=== PATIENT | male | born 1980 | race Caucasian/White ===

== ENCOUNTER 2016-05-25 21:21 | Inpatient (IN) | payer OTHER ==
--- NOTE | 2016-05-25 21:35 | HP ---
COWS - Scale Resting Pulse: 0= MA 80 or Below Sweatin=Flushed/Facial Moisture Restless Observation: 3= Extraneous Movement Pupil Size: 1= Pupils >than Normal Bone or Joint Aches: 0= None Runny Nose/ Eye Tearin= Runny Nose/Eyes GI Upset > 30mins: 2= Nausea/Diarrhea Tremor Observation: 1= Tremor Morton, Not Seen Yawning Observation: 1= 1-2x During Session Anxiety or Irritability: 1=Feels Anxious/Irritable Goose Flesh Skin: 3=Piloerection COWS Score: 16 Admission ROS BHS - HPI Chief Complaint: WITHDRAWAL SYMPTOMS Allergies/Adverse Reactions: Allergies Allergy/AdvReac Type Severity Reaction Status Date / Time fish derived Allergy Intermediate Verified 11/27/15 08:14 shellfish derived Allergy Intermediate Verified 11/27/15 08:14 No Known Drug Allergies Allergy Verified 11/27/15 08:14 seafood Allergy Intermediate Uncoded 11/27/15 08:14 History of Present Illness: 36 Y.O. MAN WITH A 19 YEAR HISTORY OF OPIATE DEPENDENCY IS SEEKING DETOX. HE REPORTS HAVING A 2 YEAR PERIOD OF SOBRIETY. HE DID NOT COMPLETE TREATMENT DURING HIS LAS TWO ADMISSIONS HERE. HE WAS INCARCERATED THE LAST 5 DAYS AT [facility] AND REPORTS HE WAS BEING DETOXED METH[facility]ONE WITH [facility] BUT HE WAS RELEASED BEFORE HE COULD COMPLETE TX. HE DENIES BEING IN A MMTP. Exam Limitations: No Limitations - Ebola screening Have you traveled outside of the country in the last 21 days: No (N) Have you had contact with anyone from an Ebola affected area: No Do you have a fever: No - Review of Systems Constitutional: Loss of Appetite, Unintentional Wgt. Loss EENT: reports: No Symptoms Reported Respiratory: reports: No Symptoms reported Cardiac: reports: No Symptoms Reported GI: reports: No Symptoms Reported : reports: No Symptoms Reported Musculoskeletal: reports: No Symptoms Reported Integumentary: reports: No Symptoms Reported Neuro: reports: No Symptoms reported Endocrine: reports: No Symptoms Reported Hematology: reports: No Symptoms Reported Psychiatric: reports: Mood/Affect Appropiate, Anxious Other Systems: Reviewed and Negative Patient History - Patient Medical History Hx Anemia: No Hx Asthma: Yes (CHILDHOOD ASTHMA ) Hx Chronic Obstructive Pulmonary Disease (COPD): No Hx Cancer: No Hx Cardiac Disorders: No Hx Congestive Heart Failure: No Hx Hypertension: No Hx Hypercholesterolemia: No Hx Pacemaker: No HX Cerebrovascular Accident: No Hx Seizures: No Hx Dementia: No Hx Diabetes: No Hx Gastrointestinal Disorders: No Hx Liver Disease: No Hx Genitourinary Disorders: No Hx Sexually Transmitted Disorders: No Hx Renal Disease (ESRD): No Hx Thyroid Disease: No Hx Human Immunodeficiency Virus (HIV): No Hx Hepatitis C: No Hx Depression: No Hx Suicide Attempt: No Hx Bipolar Disorder: No Hx Schizophrenia: No - Patient Surgical History Past Surgical History: No Hx Neurologic Surgery: No Hx Cataract Extraction: No Hx Cardiac Surgery: No Hx Lung Surgery: No Hx Breast Surgery: No Hx Breast Biopsy: No Hx Abdominal Surgery: No Hx Appendectomy: No Hx Cholecystectomy: No Hx Genitourinary Surgery: No Hx Section: No Hx Orthopedic Surgery: No - PPD History Previous Implant?: Yes Documented Results: Negative w/proof Implanted On Prior R Admission?: Yes Date: 08/27/15 Results: Negative PPD to be Administered?: No - Reproductive History Patient is a Female of Child Bearing Age (11 -55 yrs old): No - Smoking Cessation Smoking history: Current every day smoker Have you smoked in the past 12 months: Yes Aproximately how many cigarettes per day: 20 Hx Chewing Tobacco Use: No Initiated information on smoking cessation: Yes 'Breaking Loose' booklet given: 05/25/16 - Substance & Tx. History Hx Alcohol Use: No Hx Substance Use: Yes Substance Use Type: Heroin Hx Substance Use Treatment: Yes - Substances Abused Heroin Route: Injection Frequency: Daily Amount used: 8-10 BAGS Age of first use: 17 Date of Last Use: 05/25/16 Family Disease History - Family Disease History Family Disease History: Other: Father (DEPENDENT ON ETOH AND DRUGS AND ) Admission Physical Exam BHS - Vital Signs Vital Signs: Last Vital Signs Temp Pulse Resp BP Pulse Ox 97.3 F L 76 20 119/75 05/25/16 21:30 05/25/16 21:30 05/25/16 21:30 05/25/16 21:30 - Physical General Appearance: Yes: Disheveled, Anxious HEENTM: Yes: Hearing grossly Normal, Normal ENT Inspection, Normocephalic, Normal Voice Respiratory: Yes: Chest Non-Tender, Lungs Clear, Normal Breath Sounds, No Respiratory Distress, No Accessory Muscle Use Neck: Yes: No masses,lesions,Nodules, Trachea in good position Breast: Yes: Breast Exam Deferred Cardiology: Yes: Regular Rhythm, Regular Rate Abdominal: Yes: Normal Bowel Sounds, Non Tender Genitourinary: Yes: Other (NO COMPLAINTS REPORTED) Back: Yes: Normal Inspection Musculoskeletal: Yes: full range of Motion, Gait Steady, Pelvis Stable Extremities: Yes: Normal Inspection, Normal Range of Motion, Non-Tender Neurological: Yes: Alert, Motor Strength 5/5, Normal Mood/Affect, Normal Response Integumentary: Yes: Normal Color, Dry, Warm, Track Jara Lymphatic: Yes: Within Normal Limits - Diagnostic (1) Opioid dependence with withdrawal Current Visit: Yes Status: Chronic (2) Nicotine dependence Current Visit: Yes Status: Chronic Cleared for Admission [facility] - Detox or Rehab [facility] Level of Care: Medically Managed Detox Regimen/Protocol: Methadone [facility] Breath Alcohol Content Breath Alcohol Content: 0
[2016-05-25] MEDS ORDERED: MENTHOL/PHENOL 1 EACH UD MM PRN (21:48)
[2016-05-25] MEDS ORDERED: hydrOXYzine PAMOATE 50 MG CAPSULE (FP) PO PRN (21:48)
[2016-05-25] MEDS ORDERED: LOPERAMIDE HCL 2 MG CAPSULE PO PRN (21:48)
[2016-05-25] MEDS ORDERED: guaiFENesin/D-METHORPHAN HB 10 ML UNIT-DOSE CUPS PO PRN (21:48)
[2016-05-25] MEDS ORDERED: NICOTINE POLACRILEX 2 MG GUM BUC PRN (21:48)
[2016-05-25] MEDS ORDERED: MAGNESIUM HYDROX 2400MG/30ML ORAL SUSPENSION 30 ML CUP PO PRN (21:48)
[2016-05-25] MEDS ORDERED: IBUPROFEN 400 MG TABLET (FP) PO PRN (21:48)
[2016-05-25] MEDS ORDERED: P-EPHED 60MG/TRIPROLIDI 2.5MG TABLET PO PRN (21:48)
[2016-05-25] MEDS ORDERED: ACETAMINOPHEN 325 MG TABLET (FP) PO PRN (21:48)
[2016-05-25] MEDS ORDERED: MAGNESIUM CITRATE 300 ML BOTTLE PO PRN (21:48)
[2016-05-25] MEDS ORDERED: METHADONE HCL 10 MG TABLET (FOR DETOX USE ONLY) PO ONE ×2 (21:48→23:00)
[2016-05-25] MEDS ORDERED: MAG HYDROX/AL HYDROX/SIMETH 30 ML UNIT-DOSE CUP PO PRN (21:48)
[2016-05-25 21:52] VITALS: BMI 22.5
[2016-05-25] MEDS: THIAMINE HCL 100 MG TABLET (FP) PO SCH (23:49)
[2016-05-25] MEDS: diphenhydrAMINE HCL 50 MG CAPSULE PO PRN (23:50)
[2016-05-25] MEDS: diazePAM 5 MG TABLET PO PRN (23:50)
[2016-05-26] MEDS ORDERED: METHADONE HCL 10 MG TABLET (FOR DETOX USE ONLY) PO ONE (10:00)
[2016-05-26 10:30] LABS: MCH 29.3 pg (25.7-33.7); MCHC 33.1 g/dl (32.0-35.9); MEAN CELL VOLUME 88.5 fl (80-96); MEAN PLT VOLUME 8.9 fl (7.5-11.1); PLATELET COUNT 196 K/MM3 (134-434); RDW 13.8 % (11.9-15.9); WHITE BLOOD COUNT 7.2 K/mm3 (4.0-10.0)
[2016-05-26] MEDS: PRENATAL VITAMINS W/ FOLIC ACID TABLET (FP) PO SCH (10:41)
[2016-05-26] MEDS: NICOTINE 21 MG/24 HOURS TOPICAL PATCH TD SCH (10:41)
[2016-05-26] MEDS: diazePAM 5 MG TABLET PO PRN ×3 (10:42→22:39)
[2016-05-26 10:56] LABS: ALBUMIN 3.4 g/dl (3.4-5.0); ALK PHOS 52 U/L (45-117); ANION GAP 9 (8-16); BILIRUBIN,TOTAL 0.3 mg/dL (0.2-1.0); CALCIUM 8.8 mg/dL (8.5-10.1); CO2 31 mmol/L (21-32); COCKROFT - GAULT 104.82; CREATININE 0.9 mg/dL (0.7-1.3); GLUCOSE,RANDOM 95 mg/dL (74-106); SGOT/AST 10 U/L (15-37); SGPT/ALT 21 U/L (12-78); TOT PROT 6.4 g/dl (6.4-8.2)
[2016-05-26 12:48] LABS: HIV 1 & 2 AB NEGATIVE; HIV 1 AGp24 NEGATIVE
[2016-05-26 13:54] LABS: URINE APPEARANCE CLEAR; URINE BILIRUBIN NEGATIVE (NEGATIVE); URINE BLOOD NEGATIVE (NEGATIVE); URINE COLOR LTYELLOW; URINE GLUCOSE (UA) NEGATIVE (NEGATIVE); URINE KETONE NEGATIVE (NEGATIVE); URINE LEUK ESTERASE NEGATIVE (NEGATIVE); URINE NITRITE NEGATIVE (NEGATIVE); URINE PROTEIN NEGATIVE (NEGATIVE); URINE UROBILINOGEN NEGATIVE E.U./dl (0.2-1.0)
[2016-05-26] MEDS: TOLNAFTATE 1% CREAM 15 GM TUBE TP SCH ×2 (14:37→22:36)
--- NOTE | 2016-05-26 16:20 | PN ---
BHS COWS - Scale Resting Pulse: 1= NC 81-100 Sweatin=Flushed/Facial Moisture Restless Observation: 1= Difficult to Sit Still Pupil Size: 0= Normal to Room Light Bone or Joint Aches: 2= Severe Diffuse Aches Runny Nose/ Eye Tearin= Nasal Congestion GI Upset > 30mins: 2= Nausea/Diarrhea Tremor Observation of Outstretched Hands: 2= Slight Tremor Visible Yawning Observation: 1= 1-2x During Session Anxiety or Irritability: 2=Irritable/Anxious Goose Flesh Skin: 0=Smooth Skin COWS Score: 14 BHS Progress Note (SOAP) Subjective: Nausea, Interrupted Sleep, Body Aches, Sweating. Objective: PT. A & O X 3, OBSERVED AMBULATING ON UNIT. 05/26/16 16:18 Vital Signs Temperature 96.4 F L 05/26/16 13:43 Pulse Rate 81 05/26/16 13:43 Respiratory Rate 18 05/26/16 13:43 Blood Pressure 104/59 05/26/16 13:43 O2 Sat by Pulse Oximetry (%) Laboratory Last Values WBC 7.2 K/mm3 (4.0-10.0) 05/26/16 08:00 RBC 4.46 M/mm3 (4.00-5.60) 05/26/16 08:00 Hgb 13.1 GM/dL (11.7-16.9) 05/26/16 08:00 Hct 39.5 % (35.4-49) 05/26/16 08:00 MCV 88.5 fl (80-96) 05/26/16 08:00 MCHC 33.1 g/dl (32.0-35.9) 05/26/16 08:00 RDW 13.8 % (11.9-15.9) D 05/26/16 08:00 Plt Count 196 K/MM3 (134-434) 05/26/16 08:00 MPV 8.9 fl (7.5-11.1) 05/26/16 08:00 Sodium 146 mmol/L (136-145) H 05/26/16 08:00 Potassium 4.1 mmol/L (3.5-5.1) 05/26/16 08:00 Chloride 106 mmol/L (98-107) 05/26/16 08:00 Carbon Dioxide 31 mmol/L (21-32) 05/26/16 08:00 Anion Gap 9 (8-16) 05/26/16 08:00 BUN 20 mg/dL (7-18) H D 05/26/16 08:00 Creatinine 0.9 mg/dL (0.7-1.3) 05/26/16 08:00 Creat Clearance w eGFR > 60 (>60) 05/26/16 08:00 Random Glucose 95 mg/dL (74-106) 05/26/16 08:00 Calcium 8.8 mg/dL (8.5-10.1) 05/26/16 08:00 Total Bilirubin 0.3 mg/dL (0.2-1.0) 05/26/16 08:00 AST 10 U/L (15-37) L D 05/26/16 08:00 ALT 21 U/L (12-78) 05/26/16 08:00 Alkaline Phosphatase 52 U/L (45-117) D 05/26/16 08:00 Total Protein 6.4 g/dl (6.4-8.2) 05/26/16 08:00 Albumin 3.4 g/dl (3.4-5.0) 05/26/16 08:00 Urine Color Ltyellow 05/26/16 08:59 Urine Appearance Clear 05/26/16 08:59 Urine pH 6.0 (5.0-8.0) 05/26/16 08:59 Ur Specific [place] 1.025 (1.001-1.035) 05/26/16 08:59 Urine Protein Negative (NEGATIVE) 05/26/16 08:59 Urine Glucose (UA) Negative (NEGATIVE) 05/26/16 08:59 Urine Ketones Negative (NEGATIVE) 05/26/16 08:59 Urine Blood Negative (NEGATIVE) 05/26/16 08:59 Urine Nitrite Negative (NEGATIVE) 05/26/16 08:59 Urine Bilirubin Negative (NEGATIVE) 05/26/16 08:59 Urine Urobilinogen Negative E.U./dl (0.2-1.0) 05/26/16 08:59 Ur Leukocyte Esterase Negative (NEGATIVE) 05/26/16 08:59 RPR Titer Nonreactive (NONREACTIVE) 05/26/16 08:00 HIV 1&2 Antibody Screen Negative 05/26/16 08:00 HIV P24 Antigen Negative 05/26/16 08:00 LABS NOTED. Assessment: 05/26/16 16:19 WITHDRAWAL SYMPTOMS. Plan: CONTINUE DETOX. ADVISED PATIENT TO FOLLOW-UP WITH CONTROL PANEL TESTER / REHAB MEDICAL PROVIDER AFTER DISCHARGE FROM DETOX FOR GENERAL MEDICAL ASSESSMENT AND FOR ABNORMAL ADMISSION LAB VALUES.
[2016-05-26] MEDS: THIAMINE HCL 100 MG TABLET (FP) PO SCH (22:36)
[2016-05-26] MEDS: diphenhydrAMINE HCL 50 MG CAPSULE PO PRN (22:36)
[2016-05-27] MEDS: diazePAM 5 MG TABLET PO PRN ×3 (03:52→19:41)
[2016-05-27] MEDS: TOLNAFTATE 1% CREAM 15 GM TUBE TP SCH ×2 (10:37→22:56)
[2016-05-27] MEDS: PRENATAL VITAMINS W/ FOLIC ACID TABLET (FP) PO SCH (10:37)
[2016-05-27] MEDS: NICOTINE 21 MG/24 HOURS TOPICAL PATCH TD SCH (10:37)
--- NOTE | 2016-05-27 11:39 | PN ---
S COWS - Scale Resting Pulse: 1= MS 81-100 Sweatin= Chills/Flushing Restless Observation: 1= Difficult to Sit Still Pupil Size: 1= Pupils >than Normal Bone or Joint Aches: 1= Mild Discomfort Runny Nose/ Eye Tearin= Nasal Congestion GI Upset > 30mins: 2= Nausea/Diarrhea Tremor Observation of Outstretched Hands: 2= Slight Tremor Visible Yawning Observation: 1= 1-2x During Session Anxiety or Irritability: 2=Irritable/Anxious Goose Flesh Skin: 3=Piloerection COWS Score: 16 S Progress Note (SOAP) Subjective: nausea, sweats, interrupted sleep, anxiety, tremors Objective: 05/27/16 11:38 Vital Signs - 24 hr 05/26/16 05/26/16 05/26/16 13:43 18:06 21:42 Temperature 96.4 F L 96.3 F L 97.2 F L Pulse Rate 81 64 71 Respiratory 18 18 18 Rate Blood Pressure 104/59 96/46 105/59 05/27/16 05/27/16 05/27/16 00:30 03:30 06:14 Temperature 96.1 F L Pulse Rate 84 Respiratory 18 18 16 Rate Blood Pressure 100/58 05/27/16 10:30 Temperature 97.1 F L Pulse Rate 77 Respiratory 20 Rate Blood Pressure 111/67 Laboratory Tests 05/26/16 05/26/16 05/26/16 08:00 08:00 08:00 WBC 7.2 RBC 4.46 Hgb 13.1 Hct 39.5 MCV 88.5 MCHC 33.1 RDW 13.8 D Plt Count 196 MPV 8.9 Sodium 146 H Potassium 4.1 Chloride 106 Carbon Dioxide 31 Anion Gap 9 BUN 20 H D Creatinine 0.9 Creat Clearance w eGFR > 60 Random Glucose 95 Calcium 8.8 Total Bilirubin 0.3 AST 10 L D ALT 21 Alkaline Phosphatase 52 D Total Protein 6.4 Albumin 3.4 Urine Color Urine Appearance Urine pH Ur Specific [place] Urine Protein Urine Glucose (UA) Urine Ketones Urine Blood Urine Nitrite Urine Bilirubin Urine Urobilinogen Ur Leukocyte Esterase RPR Titer Nonreactive HIV 1&2 Antibody Screen HIV P24 Antigen 05/26/16 05/26/16 08:00 08:59 WBC RBC Hgb Hct MCV MCHC RDW Plt Count MPV Sodium Potassium Chloride Carbon Dioxide Anion Gap BUN Creatinine Creat Clearance w eGFR Random Glucose Calcium Total Bilirubin AST ALT Alkaline Phosphatase Total Protein Albumin Urine Color Ltyellow Urine Appearance Clear Urine pH 6.0 Ur Specific [place] 1.025 Urine Protein Negative Urine Glucose (UA) Negative Urine Ketones Negative Urine Blood Negative Urine Nitrite Negative Urine Bilirubin Negative Urine Urobilinogen Negative Ur Leukocyte Esterase Negative RPR Titer HIV 1&2 Antibody Screen Negative HIV P24 Antigen Negative Assessment: 05/27/16 11:39 withdrawal sx Plan: cont detox, encourage ambulation
--- NOTE | 2016-05-27 14:30 | EKG ---
Test Reason : Blood Pressure : / mmHG Vent. Rate : 064 BPM Atrial Rate : 064 BPM P-R Int : 140 ms QRS Dur : 106 ms QT Int : 378 ms P-R-T Axes : 035 041 039 degrees QTc Int : 389 ms NORMAL SINUS RHYTHM NORMAL ECG NO PREVIOUS ECGS AVAILABLE BASELINE ARTIFACT Confirmed by ZACHARIAH CORADO, NADIYA ([id number]) on 05/27/2016 2:30:13 PM Referred By: Confirmed By:NADIYA SONI MD
[2016-05-27] MEDS: THIAMINE HCL 100 MG TABLET (FP) PO SCH (22:54)
[2016-05-27] MEDS: diphenhydrAMINE HCL 50 MG CAPSULE PO PRN (22:55)
[2016-05-28] MEDS: diazePAM 5 MG TABLET PO PRN ×2 (05:31→10:51)
[2016-05-28] MEDS ORDERED: METHADONE HCL 5 MG TABLET (FOR DETOX USE ONLY) PO ONE (10:00)
[2016-05-28] MEDS: PRENATAL VITAMINS W/ FOLIC ACID TABLET (FP) PO SCH (10:51)
[2016-05-28] MEDS: TOLNAFTATE 1% CREAM 15 GM TUBE TP SCH (10:52)
[2016-05-28] MEDS: NICOTINE 21 MG/24 HOURS TOPICAL PATCH TD SCH (10:52)
[2016-05-28 13:21] VITALS: BP 105/66; PULSE 90; TEMP 96.2
--- NOTE | 2016-05-28 13:25 | PN ---
S Progress Note Note: Pt. was seen opening the window in his room and receiving contraband. Both the staff & security cameras saw this. D/c pt. now F/U with IOP
--- NOTE | 2016-05-28 13:30 | DS ---
[facility] Detox Discharge Summary Admission Date: 05/25/16 Discharge Date: 05/28/16 - History Present History: Alcohol Dependence, Cannabis Dependence, Opioid Dependence Pertinent Past History: Still's disease - Physical Exam Results Vital Signs: Vital Signs Temperature 96.2 F L 05/28/16 13:20 Pulse Rate 90 05/28/16 13:20 Respiratory Rate 20 05/28/16 13:20 Blood Pressure 105/66 05/28/16 13:20 O2 Sat by Pulse Oximetry (%) Pertinent Admission Physical Exam Findings: Withdrawal sx. Laboratory Last Values WBC 7.2 K/mm3 (4.0-10.0) 05/26/16 08:00 RBC 4.46 M/mm3 (4.00-5.60) 05/26/16 08:00 Hgb 13.1 GM/dL (11.7-16.9) 05/26/16 08:00 Hct 39.5 % (35.4-49) 05/26/16 08:00 MCV 88.5 fl (80-96) 05/26/16 08:00 MCHC 33.1 g/dl (32.0-35.9) 05/26/16 08:00 RDW 13.8 % (11.9-15.9) D 05/26/16 08:00 Plt Count 196 K/MM3 (134-434) 05/26/16 08:00 MPV 8.9 fl (7.5-11.1) 05/26/16 08:00 Sodium 146 mmol/L (136-145) H 05/26/16 08:00 Potassium 4.1 mmol/L (3.5-5.1) 05/26/16 08:00 Chloride 106 mmol/L (98-107) 05/26/16 08:00 Carbon Dioxide 31 mmol/L (21-32) 05/26/16 08:00 Anion Gap 9 (8-16) 05/26/16 08:00 BUN 20 mg/dL (7-18) H D 05/26/16 08:00 Creatinine 0.9 mg/dL (0.7-1.3) 05/26/16 08:00 Creat Clearance w eGFR > 60 (>60) 05/26/16 08:00 Random Glucose 95 mg/dL (74-106) 05/26/16 08:00 Calcium 8.8 mg/dL (8.5-10.1) 05/26/16 08:00 Total Bilirubin 0.3 mg/dL (0.2-1.0) 05/26/16 08:00 AST 10 U/L (15-37) L D 05/26/16 08:00 ALT 21 U/L (12-78) 05/26/16 08:00 Alkaline Phosphatase 52 U/L (45-117) D 05/26/16 08:00 Total Protein 6.4 g/dl (6.4-8.2) 05/26/16 08:00 Albumin 3.4 g/dl (3.4-5.0) 05/26/16 08:00 Urine Color Ltyellow 05/26/16 08:59 Urine Appearance Clear 05/26/16 08:59 Urine pH 6.0 (5.0-8.0) 05/26/16 08:59 Ur Specific [place] 1.025 (1.001-1.035) 05/26/16 08:59 Urine Protein Negative (NEGATIVE) 05/26/16 08:59 Urine Glucose (UA) Negative (NEGATIVE) 05/26/16 08:59 Urine Ketones Negative (NEGATIVE) 05/26/16 08:59 Urine Blood Negative (NEGATIVE) 05/26/16 08:59 Urine Nitrite Negative (NEGATIVE) 05/26/16 08:59 Urine Bilirubin Negative (NEGATIVE) 05/26/16 08:59 Urine Urobilinogen Negative E.U./dl (0.2-1.0) 05/26/16 08:59 Ur Leukocyte Esterase Negative (NEGATIVE) 05/26/16 08:59 RPR Titer Nonreactive (NONREACTIVE) 05/26/16 08:00 HIV 1&2 Antibody Screen Negative 05/26/16 08:00 HIV P24 Antigen Negative 05/26/16 08:00 labs noted - Treatment Patient has Accepted a Rehab Referral to: IOP - Medication Discharge Medications: Ambulatory Orders NK [No Known Home Medication] 11/27/15 - Diagnosis (1) Nicotine dependence Current Visit: Yes Status: Chronic Qualifiers: Nicotine product type: cigarettes Substance use status: uncomplicated Qualified Code(s): F17.210 - Nicotine dependence, cigarettes, uncomplicated (2) Opioid dependence with withdrawal Current Visit: Yes Status: Chronic (3) Alcohol dependence with withdrawal, uncomplicated Current Visit: Yes Status: Chronic (4) Cannabis dependence Current Visit: Yes Status: Chronic (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
== END 2016-05-28 14:00 | disposition home or self-care (01) | DRG 773 ==
LOC: YASAS 21:21 → Y3N 21:32
PROVIDERS: ADMIT Internal Medicine; ATTEND Internal Medicine
PROC: HZ2ZZZZ Detoxification Services for Substance Abuse Treatment (ICD-10-PCS; principal; 2016-05-25)
DX: F11.23 Opioid dependence with withdrawal (principal); F10.230 Alcohol dependence with withdrawal, uncomplicated; F14.20 Cocaine dependence, uncomplicated; F12.20 Cannabis dependence, uncomplicated; F17.210 Nicotine dependence, cigarettes, uncomplicated; M08.20 Juvenile rheumatoid arthritis with systemic onset, unspecified site; Z87.09 Personal history of other diseases of the respiratory system
CPT/HCPCS: 36415; 80053; 81003; 85027; 86593; 87389; 93005; 93010

== ENCOUNTER 2019-04-02 20:02 | Inpatient (IN) | payer OTHER ==
--- NOTE | 2019-04-02 20:18 | BHS.RME ---
COWS - Scale Resting Pulse: 0= SD 80 or Below Sweatin= Chills/Flushing Restless Observation: 3= Extraneous Movement Pupil Size: 0= Normal to Room Light Bone or Joint Aches: 1= Mild Discomfort Runny Nose/ Eye Tearin= Runny Nose/Eyes GI Upset > 30mins: 0= None Tremor Observation: 0= None Yawning Observation: 0= None Anxiety or Irritability: 2=Irritable/Anxious Goose Flesh Skin: 0=Smooth Skin COWS Score: 9
--- NOTE | 2019-04-02 20:21 | HP ---
"COWS - Scale Resting Pulse: 0= AR 80 or Below Sweatin= Chills/Flushing Restless Observation: 3= Extraneous Movement Pupil Size: 0= Normal to Room Light Bone or Joint Aches: 1= Mild Discomfort Runny Nose/ Eye Tearin= Runny Nose/Eyes GI Upset > 30mins: 0= None Tremor Observation: 0= None Yawning Observation: 0= None Anxiety or Irritability: 2=Irritable/Anxious Goose Flesh Skin: 0=Smooth Skin COWS Score: 9 CIWA Score - Admission Criteria [facility] Guidelines: Admission for Medically Managed Detox: Requires at least one of the followin. CIWA greater than 12 2. Seizures within the past 24 hours 3. Delirium tremens within the past 24 hours 4. Hallucinations within the past 24 hours 5. Acute intervention needed for co occurring medical disorder 6. Acute intervention needed for co occurring psychiatric disorder 7. Severe withdrawal that cannot be handled at a lower level of care (continued vomiting, continued diarrhea, abnormal vital signs) requiring intravenous medication and/or fluids 8. Admitting History and Physical - Smoking History Smoking history: Current every day smoker Have you smoked in the past 12 months: Yes Aproximately how many cigarettes per day: 20 - Alcohol/Substance Use Hx Alcohol Use: No Admission ROS [facility] - HPI Allergies/Adverse Reactions: Allergies Allergy/AdvReac Type Severity Reaction Status Date / Time fish derived Allergy Intermediate Verified 04/02/19 21:09 shellfish derived Allergy Intermediate Verified 04/02/19 21:09 No Known Drug Allergies Allergy Verified 05/25/16 22:26 seafood Allergy Intermediate Uncoded 04/02/19 21:09 History of Present Illness: Search Terms: evon marques, 1980 Search Date: 04/02/2019 08:09:23 PM The Drug Utilization Report below displays all of the controlled substance prescriptions, if any, that your patient has filled in the last twelve months. The information displayed on this report is compiled from pharmacy submissions to the Department, and accurately reflects the information as submitted by the pharmacies. This report was requested by: Alyssa Oneal | Reference #: [id number] There are no results for the search terms that you entered. 38 y.o. male requesting detox from heroin use , reports relapse 6 mo ago , current daily use 2 bundles /day , latest use today 4 bags IV in bridgett UE , denies abscess , + OD , most recently 5 years ago , no Narcan @ home , lives w/ aunt . cocaine : 20-30 $ every other day tobacco : 1 ppd requesting nrt w/ gum pmhx : denies psych: denies SI / HI Exam Limitations: Clinical Condition - Review of Systems Constitutional: No Symptoms Reported EENT: reports: No Symptoms Reported Respiratory: reports: No Symptoms reported Cardiac: reports: No Symptoms Reported GI: reports: Nausea : reports: No Symptoms Reported Musculoskeletal: reports: See HPI, Muscle Pain Integumentary: reports: See HPI Neuro: reports: No Symptoms reported Endocrine: reports: No Symptoms Reported Hematology: reports: No Symptoms Reported Psychiatric: reports: Orientated x3, Agitated, Anxious Patient History - Patient Medical History Hx Anemia: No Hx Asthma: Yes (CHILDHOOD ASTHMA ) Hx Chronic Obstructive Pulmonary Disease (COPD): No Hx Cancer: No Hx Cardiac Disorders: No Hx Congestive Heart Failure: No Hx Hypertension: No Hx Hypercholesterolemia: No Hx Pacemaker: No HX Cerebrovascular Accident: No Hx Seizures: No Hx Dementia: No Hx Diabetes: No Hx Gastrointestinal Disorders: No Hx Liver Disease: No Hx Genitourinary Disorders: No Hx Sexually Transmitted Disorders: No Hx Renal Disease (ESRD): No Hx Thyroid Disease: No Hx Human Immunodeficiency Virus (HIV): No Hx Hepatitis C: No Hx Depression: No Hx Suicide Attempt: No Hx Bipolar Disorder: No Hx Schizophrenia: No - Patient Surgical History Past Surgical History: No Hx Neurologic Surgery: No Hx Cataract Extraction: No Hx Cardiac Surgery: No Hx Lung Surgery: No Hx Breast Surgery: No Hx Breast Biopsy: No Hx Abdominal Surgery: No Hx Appendectomy: No Hx Cholecystectomy: No Hx Genitourinary Surgery: No Hx Section: No Hx Orthopedic Surgery: No - PPD History Date: 08/27/15 Results: Negative - Smoking Cessation Smoking history: Current every day smoker Have you smoked in the past 12 months: Yes Aproximately how many cigarettes per day: 20 Hx Chewing Tobacco Use: No Initiated information on smoking cessation: Yes 'Breaking Loose' booklet given: 04/02/19 - Substances abused Heroin Substance route: Injection Frequency: Daily Amount used: 20bags Age of first use: 17 Date of last use: 04/02/19 Alcohol Substance route: Oral Frequency: 3-6 times per week Amount used: 6 pack of beer Age of first use: 17 Date of last use: 04/01/19 Admission Physical Exam [facility] - Physical General Appearance: Yes: Mild Distress, Anxious HEENTM: Yes: EOMI, Hearing grossly Normal, Normocephalic, Normal Voice Respiratory: Yes: Chest Non-Tender, Lungs Clear, Normal Breath Sounds, No Respiratory Distress, No Accessory Muscle Use Neck: Yes: No masses,lesions,Nodules, Trachea in good position Cardiology: Yes: Regular Rhythm, Regular Rate, S1, S2 Abdominal: Yes: Non Tender, Soft Back: Yes: Normal Inspection Musculoskeletal: Yes: Gait Steady Extremities: Yes: Normal Capillary Refill, Normal Inspection, Normal Range of Motion, Non-Tender Neurological: Yes: Fully Oriented, Alert, Motor Strength 5/5, Normal Mood/Affect Integumentary: Yes: Warm, Track Jara (bridgett UE forearms) - Diagnostic (1) Opioid dependence Current Visit: Yes Status: Chronic (2) Nicotine dependence Current Visit: Yes Status: Chronic Qualifiers: Nicotine product type: cigarettes Substance use status: uncomplicated Qualified Code(s): F17.210 - Nicotine dependence, cigarettes, uncomplicated (3) cocaine dependence Current Visit: Yes Status: Chronic Inpatient Rehab Admission - Rehab Decision to Admit Inpatient rehab admission?: No"
[2019-04-02] MEDS ORDERED: ACETAMINOPHEN 325 MG TABLET (FP) PO PRN ×2 (20:43)
[2019-04-02] MEDS ORDERED: NICOTINE POLACRILEX 2 MG GUM BUC PRN (20:43)
[2019-04-02] MEDS ORDERED: MENTHOL/PHENOL 1 EACH UD MM PRN (20:43)
[2019-04-02] MEDS ORDERED: METHOCARBAMOL 500 MG TABLET PO PRN (20:43)
[2019-04-02] MEDS ORDERED: IBUPROFEN 400 MG TABLET (FP) PO PRN (20:43)
[2019-04-02] MEDS ORDERED: MAGNESIUM HYDROX 2400MG/30ML ORAL SUSPENSION 30 ML CUP PO PRN (20:43)
[2019-04-02] MEDS ORDERED: BISMUTH SUBSALICYLATE 524 MG/30 ML UD PO PRN (20:43)
[2019-04-02] MEDS ORDERED: MAG HYDROX/AL HYDROX/SIMETH 30 ML UNIT-DOSE CUP PO PRN (20:43)
[2019-04-02] MEDS ORDERED: hydrOXYzine PAMOATE 25 MG CAPSULE (FP) PO PRN (20:43)
[2019-04-02] MEDS ORDERED: MAGNESIUM CITRATE 300 ML BOTTLE PO PRN (20:43)
[2019-04-02] MEDS ORDERED: MELATONIN 5 MG TABLETS PO PRN (20:43)
[2019-04-02] MEDS ORDERED: cloNIDine HCL 0.1 MG TABLET PO PRN (20:44)
[2019-04-02 20:58] VITALS: BMI 25.8
[2019-04-02] MEDS: ASPIRIN COATED 81 MG TABLET.EC PO SCH (22:45)
[2019-04-02] MEDS: THIAMINE HCL 100 MG TABLET (FP) PO SCH (22:45)
[2019-04-02] MEDS ORDERED: METHADONE HCL 10 MG TABLET (FOR DETOX USE ONLY) PO ONE (23:00)
[2019-04-03] MEDS ORDERED: METHADONE HCL 10 MG TABLET (FOR DETOX USE ONLY) ONE (09:04)
[2019-04-03] MEDS ORDERED: METHADONE HCL 5 MG TABLET (FOR DETOX USE ONLY) ONE (09:05)
[2019-04-03] MEDS ORDERED: METHADONE (DETOX) 20 MG, METHADONE (DETOX) 5 MG PO ONE (10:00)
--- NOTE | 2019-04-03 10:27 | EKG ---
Test Reason : Blood Pressure : / mmHG Vent. Rate : 060 BPM Atrial Rate : 060 BPM P-R Int : 146 ms QRS Dur : 112 ms QT Int : 400 ms P-R-T Axes : 043 033 048 degrees QTc Int : 400 ms NORMAL SINUS RHYTHM INCOMPLETE RIGHT BUNDLE BRANCH BLOCK WHEN COMPARED WITH ECG OF 25-MAY-2016 22:43, NO SIGNIFICANT CHANGE WAS FOUND Confirmed by YAZMIN EL MD ([id number]) on 04/03/2019 10:27:08 AM Referred By: Blue Payan Confirmed By:YAZMIN EL MD
[2019-04-03 10:39] LABS: HEMATOCRIT 39.2 % (35.4-49); HEMOGLOBIN 13.4 GM/dL (11.7-16.9); MCH 29.7 pg (25.7-33.7); MCHC 34.3 g/dl (32.0-35.9); MEAN CELL VOLUME 86.4 fl (80-96); PLATELET COUNT 170 K/MM3 (134-434); RBC 4.53 M/mm3 (4.00-5.60); RDW 13.2 % (11.9-15.9); WHITE BLOOD COUNT 4.9 K/mm3 (4.0-10.0)
[2019-04-03 10:54] LABS: ALBUMIN 3.3 g/dl (3.4-5.0); BILIRUBIN,TOTAL 0.4 mg/dL (0.2-1); CALCIUM 8.8 mg/dL (8.5-10.1); CREATININE 0.9 mg/dL (0.55-1.3); TOT PROT 6.9 g/dl (6.4-8.2)
[2019-04-03] MEDS: ASPIRIN COATED 81 MG TABLET.EC PO SCH (11:17)
[2019-04-03] MEDS: PRENATAL VITAMINS W/ FOLIC ACID TABLET (FP) PO SCH (11:17)
--- NOTE | 2019-04-03 11:32 | PN ---
BHS COWS - Scale Resting Pulse: 0= AR 80 or Below Sweatin=Flushed/Facial Moisture Restless Observation: 0= Sits Still Pupil Size: 0= Normal to Room Light Bone or Joint Aches: 2= Severe Diffuse Aches Runny Nose/ Eye Tearin= Nasal Congestion GI Upset > 30mins: 1= Stomach Cramp Tremor Observation of Outstretched Hands: 0= None Yawning Observation: 0= None Anxiety or Irritability: 1=Feels Anxious/Irritable Goose Flesh Skin: 0=Smooth Skin COWS Score: 7 BHS Progress Note (SOAP) Subjective: Multiple withdrawal complaints including: anxiety, sweats, GI upset, lupe aches Objective: 04/03/19 11:30 Laboratory Tests 04/03/19 04/03/19 07:40 07:40 WBC 4.9 RBC 4.53 Hgb 13.4 Hct 39.2 MCV 86.4 MCH 29.7 MCHC 34.3 RDW 13.2 Plt Count 170 MPV 9.0 Sodium 141 Potassium 4.0 Chloride 110 H Carbon Dioxide 27 Anion Gap 5 L BUN 16.0 Creatinine 0.9 Est GFR (CKD-EPI)AfAm 125.13 Est GFR (CKD-EPI)NonAf 107.97 Random Glucose 92 Calcium 8.8 Total Bilirubin 0.4 AST 32 ALT 72 H Alkaline Phosphatase 73 Total Protein 6.9 Albumin 3.3 L Vital Signs - 24 hr 04/02/19 04/03/19 04/03/19 20:52 00:52 04:01 Temperature 98.4 F Pulse Rate 72 Respiratory 18 18 18 Rate Blood Pressure 128/70 04/03/19 04/03/19 04/03/19 05:37 07:06 08:51 Temperature 98.9 F 98.9 F 98.1 F Pulse Rate 61 61 73 Respiratory 18 18 17 Rate Blood Pressure 92/47 L 106/56 L 92/42 L PE Gnl WD, WN, in bed Mental status: sleepy, easily aroused Motor: no gross asymmetry Assessment: 04/03/19 11:31 1. Opioid use disorder 2. Nicotine use Plan: 1. continue Methadone withdrawal protocol 2. Nicoderm patch
[2019-04-03] MEDS: THIAMINE HCL 100 MG TABLET (FP) PO SCH (22:35)
[2019-04-04] MEDS ORDERED: METHADONE HCL 10 MG TABLET (FOR DETOX USE ONLY) PO ONE (10:00)
--- NOTE | 2019-04-04 10:18 | PN ---
[facility] COWS - Scale Resting Pulse: 0= HI 80 or Below Sweatin= Beads of Sweat on Face Restless Observation: 1= Difficult to Sit Still Pupil Size: 0= Normal to Room Light Bone or Joint Aches: 2= Severe Diffuse Aches Runny Nose/ Eye Tearin= None GI Upset > 30mins: 0= None Tremor Observation of Outstretched Hands: 0= None Yawning Observation: 1= 1-2x During Session Anxiety or Irritability: 2=Irritable/Anxious Goose Flesh Skin: 0=Smooth Skin COWS Score: 9 S Progress Note (SOAP) Subjective: c/o anxiety, irritability, sweats, chills, headache, and muscle aches. Objective: 04/04/19 10:21 Vital Signs 04/04/19 04/04/19 04/04/19 06:30 07:24 09:12 Temperature 97 F L 97.7 F Pulse Rate 48 L 58 L Respiratory 18 16 18 Rate Blood Pressure 103/62 104/59 L Laboratory Last Values WBC 4.9 K/mm3 (4.0-10.0) 04/03/19 07:40 RBC 4.53 M/mm3 (4.00-5.60) 04/03/19 07:40 Hgb 13.4 GM/dL (11.7-16.9) 04/03/19 07:40 Hct 39.2 % (35.4-49) 04/03/19 07:40 MCV 86.4 fl (80-96) 04/03/19 07:40 MCH 29.7 pg (25.7-33.7) 04/03/19 07:40 MCHC 34.3 g/dl (32.0-35.9) 04/03/19 07:40 RDW 13.2 % (11.9-15.9) 04/03/19 07:40 Plt Count 170 K/MM3 (134-434) 04/03/19 07:40 MPV 9.0 fl (7.5-11.1) 04/03/19 07:40 Sodium 141 mmol/L (136-145) 04/03/19 07:40 Potassium 4.0 mmol/L (3.5-5.1) 04/03/19 07:40 Chloride 110 mmol/L (98-107) H 04/03/19 07:40 Carbon Dioxide 27 mmol/L (21-32) 04/03/19 07:40 Anion Gap 5 MMOL/L (8-16) L 04/03/19 07:40 BUN 16.0 mg/dL (7-18) 04/03/19 07:40 Creatinine 0.9 mg/dL (0.55-1.3) 04/03/19 07:40 Est GFR (CKD-EPI)AfAm 125.13 04/03/19 07:40 Est GFR (CKD-EPI)NonAf 107.97 04/03/19 07:40 Random Glucose 92 mg/dL (74-106) 04/03/19 07:40 Calcium 8.8 mg/dL (8.5-10.1) 04/03/19 07:40 Total Bilirubin 0.4 mg/dL (0.2-1) 04/03/19 07:40 AST 32 U/L (15-37) 04/03/19 07:40 ALT 72 U/L (13-61) H 04/03/19 07:40 Alkaline Phosphatase 73 U/L (45-117) 04/03/19 07:40 Total Protein 6.9 g/dl (6.4-8.2) 04/03/19 07:40 Albumin 3.3 g/dl (3.4-5.0) L 04/03/19 07:40 RPR Titer Nonreactive (NONREACTIVE) 04/03/19 07:40 Labs noted. Assessment: 04/04/19 10:22 AOX3, in no acute respiratory distress. Full ROM, ambulating in the unit. Withdrawal symptoms. Plan: continue detox.
[2019-04-04] MEDS: ASPIRIN COATED 81 MG TABLET.EC PO SCH (10:25)
[2019-04-04] MEDS: PRENATAL VITAMINS W/ FOLIC ACID TABLET (FP) PO SCH (10:25)
--- NOTE | 2019-04-04 13:54 | DS ---
[facility] Detox Discharge Summary Admission Date: 04/02/19 Discharge Date: 04/04/19 (Pt left AMA) - History Present History: Alcohol Dependence, Opioid Dependence Additional Comments: As per H&P: "38 y.o. male requesting detox from heroin use , reports relapse 6 mo ago , current daily use 2 bundles /day , latest use today 4 bags IV in bridgett UE , denies abscess , + OD , most recently 5 years ago , no Narcan @ home , lives w/ aunt . cocaine : 20-30 $ every other day tobacco : 1 ppd requesting nrt w/ gum". Pt left AMA. Pt did not complete the detox protocol. Withdrawal symptoms persist. Pt states, "i don't want to stay here anymore, i'm leaving". An attempt to let pt stay and complete the detox protocol failed. Pt is encouraged to follow-up with an outpatient CD program and also to follow-up with his pmd. Pt verbalized understanding of the information given. Pt is alert and oriented x3 and in no acute respiratory distress. Pertinent Past History: h/o alcohol and heroin use disorder. - Physical Exam Results Vital Signs: Vital Signs Temperature 97.7 F 04/04/19 09:12 Pulse Rate 58 L 04/04/19 09:12 Respiratory Rate 18 04/04/19 09:12 Blood Pressure 104/59 L 04/04/19 09:12 O2 Sat by Pulse Oximetry (%) Vital Signs 04/04/19 04/04/19 04/04/19 06:30 07:24 09:12 Temperature 97 F L 97.7 F Pulse Rate 48 L 58 L Respiratory 18 16 18 Rate Blood Pressure 103/62 104/59 L Laboratory Last Values WBC 4.9 K/mm3 (4.0-10.0) 04/03/19 07:40 RBC 4.53 M/mm3 (4.00-5.60) 04/03/19 07:40 Hgb 13.4 GM/dL (11.7-16.9) 04/03/19 07:40 Hct 39.2 % (35.4-49) 04/03/19 07:40 MCV 86.4 fl (80-96) 04/03/19 07:40 MCH 29.7 pg (25.7-33.7) 04/03/19 07:40 MCHC 34.3 g/dl (32.0-35.9) 04/03/19 07:40 RDW 13.2 % (11.9-15.9) 04/03/19 07:40 Plt Count 170 K/MM3 (134-434) 04/03/19 07:40 MPV 9.0 fl (7.5-11.1) 04/03/19 07:40 Sodium 141 mmol/L (136-145) 04/03/19 07:40 Potassium 4.0 mmol/L (3.5-5.1) 04/03/19 07:40 Chloride 110 mmol/L (98-107) H 04/03/19 07:40 Carbon Dioxide 27 mmol/L (21-32) 04/03/19 07:40 Anion Gap 5 MMOL/L (8-16) L 04/03/19 07:40 BUN 16.0 mg/dL (7-18) 04/03/19 07:40 Creatinine 0.9 mg/dL (0.55-1.3) 04/03/19 07:40 Est GFR (CKD-EPI)AfAm 125.13 04/03/19 07:40 Est GFR (CKD-EPI)NonAf 107.97 04/03/19 07:40 Random Glucose 92 mg/dL (74-106) 04/03/19 07:40 Calcium 8.8 mg/dL (8.5-10.1) 04/03/19 07:40 Total Bilirubin 0.4 mg/dL (0.2-1) 04/03/19 07:40 AST 32 U/L (15-37) 04/03/19 07:40 ALT 72 U/L (13-61) H 04/03/19 07:40 Alkaline Phosphatase 73 U/L (45-117) 04/03/19 07:40 Total Protein 6.9 g/dl (6.4-8.2) 04/03/19 07:40 Albumin 3.3 g/dl (3.4-5.0) L 04/03/19 07:40 RPR Titer Nonreactive (NONREACTIVE) 04/03/19 07:40 Labs noted. Pertinent Admission Physical Exam Findings: withdrawal symptoms. - Treatment Hospital Course: Detox Protocol Followed - Medication Discharge Medications: Ambulatory Orders NK [No Known Home Medication] 10/16/16 - Diagnosis (1) Nicotine dependence Current Visit: Yes Status: Chronic Qualifiers: Nicotine product type: cigarettes Substance use status: uncomplicated Qualified Code(s): F17.210 - Nicotine dependence, cigarettes, uncomplicated (2) Opioid dependence Current Visit: Yes Status: Chronic (3) cocaine dependence Current Visit: Yes Status: Chronic (4) Alcohol dependence Current Visit: No Status: Chronic (5) Heroin dependence Current Visit: No Status: Chronic (6) Alcohol dependence with withdrawal, uncomplicated Current Visit: No Status: Acute - AMA Did Patient Leave Against Medical Advice: Yes
[2019-04-04 14:07] VITALS: BP 93/52; PULSE 62; TEMP 97.3
[2019-04-05] MEDS ORDERED: METHADONE (DETOX) 10 MG, METHADONE (DETOX) 5 MG PO ONE (10:00)
[2019-04-06] MEDS ORDERED: METHADONE HCL 10 MG TABLET (FOR DETOX USE ONLY) PO ONE (10:00)
[2019-04-07] MEDS ORDERED: METHADONE HCL 5 MG TABLET (FOR DETOX USE ONLY) PO ONE (06:00)
== END 2019-04-04 13:59 | disposition left against medical advice (07) | DRG 770 ==
LOC: YASAS 20:02 → Y3N 21:03
PROVIDERS: ADMIT Allergy & Immunology; ATTEND Allergy & Immunology
PROC: HZ2ZZZZ Detoxification Services for Substance Abuse Treatment (ICD-10-PCS; principal; 2019-04-02)
DX: F10.230 Alcohol dependence with withdrawal, uncomplicated (principal); F11.23 Opioid dependence with withdrawal; F14.20 Cocaine dependence, uncomplicated; F17.210 Nicotine dependence, cigarettes, uncomplicated; Z87.09 Personal history of other diseases of the respiratory system; Z91.013 Allergy to seafood
CPT/HCPCS: 36415; 80053; 85027; 86593; 93005; 93010; J0735

== ENCOUNTER 2020-03-04 21:35 | Inpatient (IN) | payer OTHER ==
[2020-03-04 23:41] VITALS: BMI 24.9
[2020-03-04] MEDS ORDERED: ONDANSETRON *ODT* 4 MG TABLET SL PRN (23:58)
[2020-03-04] MEDS ORDERED: IBUPROFEN 400 MG TABLET (FP) PO PRN (23:58)
[2020-03-04] MEDS ORDERED: MAGNESIUM CITRATE 300 ML BOTTLE PO PRN (23:58)
[2020-03-04] MEDS ORDERED: ACETAMINOPHEN 325 MG TABLET (FP) PO PRN ×2 (23:58)
[2020-03-04] MEDS ORDERED: hydrOXYzine PAMOATE 25 MG CAPSULE (FP) PO PRN (23:58)
[2020-03-04] MEDS ORDERED: guaiFENesin 200 MG/10 ML 10 ML UNIT-DOSE CUPS PO PRN (23:58)
[2020-03-04] MEDS ORDERED: P-EPHED 60MG/TRIPROLIDI 2.5MG TABLET PO PRN (23:58)
[2020-03-04] MEDS ORDERED: NICOTINE POLACRILEX 2 MG GUM BUC PRN (23:58)
[2020-03-04] MEDS ORDERED: METHOCARBAMOL 500 MG TABLET PO PRN (23:58)
[2020-03-04] MEDS ORDERED: MAGNESIUM HYDROX 2400MG/30ML ORAL SUSPENSION 30 ML CUP PO PRN (23:58)
[2020-03-04] MEDS ORDERED: MENTHOL/PHENOL 1 EACH UD MM PRN (23:58)
[2020-03-04] MEDS ORDERED: MAG HYDROX/AL HYDROX/SIMETH 30 ML UNIT-DOSE CUP PO PRN (23:58)
[2020-03-04] MEDS ORDERED: BISMUTH SUBSALICYLATE 524 MG/30 ML UD PO PRN (23:58)
[2020-03-04] MEDS ORDERED: DICYCLOMINE HCL 10 MG CAPSULE PO PRN (23:58)
[2020-03-05] MEDS ORDERED: NALOXONE HCL 0.4 MG/ML VIAL IM PRN (00:01)
[2020-03-05] MEDS ORDERED: METHADONE HCL 10 MG TABLET (FOR DETOX USE ONLY) PO ONE ×2 (00:01→10:50)
[2020-03-05] MEDS ORDERED: cloNIDine HCL 0.1 MG TABLET PO PRN (00:01)
[2020-03-05] MEDS ORDERED: METHADONE HCL 10 MG TABLET PO ONE (10:00)
[2020-03-05] MEDS: NICOTINE 21 MG/24 HOURS TOPICAL PATCH TD SCH (10:32)
[2020-03-05] MEDS: PRENATAL VITAMINS W/ FOLIC ACID TABLET (FP) PO SCH (10:32)
[2020-03-05 13:30] LABS: HEMATOCRIT 38.1 % (35.4-49); MCH 29.3 pg (25.7-33.7); MEAN CELL VOLUME 86.2 fl (80-96); MEAN PLT VOLUME 8.9 fl (7.5-11.1); PLATELET COUNT 163 K/MM3 (134-434); RBC 4.42 M/mm3 (4.00-5.60); WHITE BLOOD COUNT 4.8 K/mm3 (4.0-10.0)
[2020-03-05 13:32] LABS: POTASSIUM 4.1 mmol/L (3.5-5.1)
[2020-03-05 13:40] LABS: BLOOD UREA NITROGEN 16.6 mg/dL (7-18); CALCIUM 8.3 mg/dL (8.5-10.1)
[2020-03-05 13:41] LABS: ALBUMIN 3.2 g/dl (3.4-5.0)
[2020-03-05 13:44] LABS: CREATININE 0.8 mg/dL (0.55-1.3)
[2020-03-05 13:45] LABS: BILIRUBIN,TOTAL 0.3 mg/dL (0.2-1); TOT PROT 6.3 g/dl (6.4-8.2)
[2020-03-05] MEDS: MELATONIN 5 MG TABLETS PO SCH (22:01)
[2020-03-05] MEDS: THIAMINE HCL 100 MG TABLET (FP) PO SCH (22:01)
[2020-03-05 22:45] LABS: URINE APPEARANCE CLEAR; URINE BILIRUBIN NEGATIVE (NEGATIVE); URINE COLOR YELLOW; URINE GLUCOSE (UA) NEGATIVE (NEGATIVE); URINE KETONE NEGATIVE (NEGATIVE); URINE LEUK ESTERASE NEGATIVE (NEGATIVE); URINE NITRITE NEGATIVE (NEGATIVE); URINE PROTEIN NEGATIVE (NEGATIVE); URINE UROBILINOGEN 0.2 mg/dL (0.2-1.0)
[2020-03-06] MEDS ORDERED: METHADONE HCL 10 MG TABLET (FOR DETOX USE ONLY) ONE (09:10)
[2020-03-06] MEDS ORDERED: METHADONE HCL 5 MG TABLET (FOR DETOX USE ONLY) ONE (09:11)
[2020-03-06] MEDS ORDERED: METHADONE (DETOX) 10 MG, METHADONE (DETOX) 5 MG PO ONE (10:00)
[2020-03-06] MEDS ORDERED: METHADONE (DETOX) 20 MG, METHADONE (DETOX) 5 MG PO ONE (10:00)
[2020-03-06] MEDS: PRENATAL VITAMINS W/ FOLIC ACID TABLET (FP) PO SCH (11:08)
[2020-03-06] MEDS: NICOTINE 21 MG/24 HOURS TOPICAL PATCH TD SCH (11:08)
[2020-03-06] MEDS: MELATONIN 5 MG TABLETS PO SCH (22:28)
[2020-03-06] MEDS: THIAMINE HCL 100 MG TABLET (FP) PO SCH (22:28)
[2020-03-07] MEDS: PRENATAL VITAMINS W/ FOLIC ACID TABLET (FP) PO SCH (09:27)
[2020-03-07] MEDS: NICOTINE 21 MG/24 HOURS TOPICAL PATCH TD SCH (09:27)
[2020-03-07] MEDS ORDERED: METHADONE HCL 10 MG TABLET (FOR DETOX USE ONLY) PO ONE ×2 (10:00)
[2020-03-07 13:12] VITALS: BP 119/80; PULSE 85; TEMP 98.9
[2020-03-08] MEDS ORDERED: METHADONE HCL 5 MG TABLET (FOR DETOX USE ONLY) PO ONE (06:00)
[2020-03-08] MEDS ORDERED: METHADONE (DETOX) 10 MG, METHADONE (DETOX) 5 MG PO ONE (10:00)
[2020-03-09] MEDS ORDERED: METHADONE HCL 10 MG TABLET (FOR DETOX USE ONLY) PO ONE (10:00)
[2020-03-10] MEDS ORDERED: METHADONE HCL 5 MG TABLET (FOR DETOX USE ONLY) PO ONE (06:00)
== END 2020-03-07 17:20 | disposition home or self-care (01) | DRG 773 ==
LOC: YASAS 21:35 → Y3N 03-05 00:08
PROVIDERS: ADMIT Allergy & Immunology; ATTEND Allergy & Immunology
PROC: HZ2ZZZZ Detoxification Services for Substance Abuse Treatment (ICD-10-PCS; principal; 2020-03-05)
DX: F11.23 Opioid dependence with withdrawal (principal); F14.20 Cocaine dependence, uncomplicated; F12.20 Cannabis dependence, uncomplicated; F17.210 Nicotine dependence, cigarettes, uncomplicated; F19.24 Other psychoactive substance dependence with psychoactive substance-induced mood disorder; Z59.0 Homelessness; Z91.013 Allergy to seafood
CPT/HCPCS: 36415; 80053; 81003; 85027; 86780; C9803; U0003

== ENCOUNTER 2020-05-02 01:06 | Inpatient (IN) | payer OTHER ==
[2020-05-02 01:23] VITALS: BMI 22.7
[2020-05-02] MEDS ORDERED: IBUPROFEN 400 MG TABLET (FP) PO PRN (01:51)
[2020-05-02] MEDS ORDERED: METHOCARBAMOL 500 MG TABLET PO PRN (01:51)
[2020-05-02] MEDS ORDERED: BISMUTH SUBSALICYLATE 524 MG/30 ML UD PO PRN (01:51)
[2020-05-02] MEDS ORDERED: MAGNESIUM CITRATE 300 ML BOTTLE PO PRN (01:51)
[2020-05-02] MEDS ORDERED: NICOTINE POLACRILEX 2 MG GUM BUC PRN (01:51)
[2020-05-02] MEDS ORDERED: ONDANSETRON *ODT* 4 MG TABLET SL PRN (01:51)
[2020-05-02] MEDS ORDERED: MENTHOL/PHENOL 1 EACH UD MM PRN (01:51)
[2020-05-02] MEDS ORDERED: MAGNESIUM HYDROX 2400MG/30ML ORAL SUSPENSION 30 ML CUP PO PRN (01:51)
[2020-05-02] MEDS ORDERED: MAG HYDROX/AL HYDROX/SIMETH 30 ML UNIT-DOSE CUP PO PRN (01:51)
[2020-05-02] MEDS ORDERED: ACETAMINOPHEN 325 MG TABLET (FP) PO PRN ×2 (01:51)
[2020-05-02] MEDS: PRENATAL VITAMINS W/ FOLIC ACID TABLET (FP) PO SCH (10:45)
[2020-05-02] MEDS: NICOTINE 21 MG/24 HOURS TOPICAL PATCH TD SCH (10:45)
[2020-05-02] MEDS ORDERED: METHADONE HCL 10 MG TABLET (FOR DETOX USE ONLY) PO ONE (11:23)
[2020-05-02] MEDS ORDERED: cloNIDine HCL 0.1 MG TABLET PO PRN (11:23)
[2020-05-02] MEDS: MELATONIN 5 MG TABLETS PO SCH (22:23)
[2020-05-02] MEDS: THIAMINE HCL 100 MG TABLET (FP) PO SCH (22:23)
[2020-05-02] MEDS: diazePAM 5 MG TABLET PO PRN (22:24)
[2020-05-03] MEDS ORDERED: METHADONE HCL 10 MG TABLET (FOR DETOX USE ONLY) ONE (09:17)
[2020-05-03] MEDS ORDERED: METHADONE HCL 5 MG TABLET (FOR DETOX USE ONLY) ONE (09:17)
[2020-05-03] MEDS ORDERED: METHADONE (DETOX) 20 MG, METHADONE (DETOX) 5 MG PO ONE (10:00)
[2020-05-03] MEDS: PRENATAL VITAMINS W/ FOLIC ACID TABLET (FP) PO SCH (10:22)
[2020-05-03] MEDS: NICOTINE 21 MG/24 HOURS TOPICAL PATCH TD SCH (10:25)
[2020-05-03 12:43] LABS: HEMATOCRIT 39.6 % (35.4-49); HEMOGLOBIN 13.4 GM/dL (11.7-16.9); MCH 29.5 pg (25.7-33.7); MCHC 33.8 g/dl (32.0-35.9); MEAN CELL VOLUME 87.2 fl (80-96); PLATELET COUNT 166 K/MM3 (134-434); RBC 4.54 M/mm3 (4.00-5.60); RDW 14.1 % (11.9-15.9); WHITE BLOOD COUNT 4.9 K/mm3 (4.0-10.0)
[2020-05-03 12:45] LABS: POTASSIUM 4.2 mmol/L (3.5-5.1)
[2020-05-03 13:02] LABS: ALBUMIN 3.5 g/dl (3.4-5.0); BLOOD UREA NITROGEN 14.2 mg/dL (7-18); CALCIUM 9.2 mg/dL (8.5-10.1)
[2020-05-03 13:04] LABS: CREATININE 0.8 mg/dL (0.55-1.3)
[2020-05-03 13:06] LABS: BILIRUBIN,TOTAL 0.6 mg/dL (0.2-1); TOT PROT 6.9 g/dl (6.4-8.2)
[2020-05-03] MEDS: THIAMINE HCL 100 MG TABLET (FP) PO SCH (23:00)
[2020-05-03] MEDS: diazePAM 5 MG TABLET PO PRN (23:00)
[2020-05-03] MEDS: MELATONIN 5 MG TABLETS PO SCH (23:00)
[2020-05-04] MEDS ORDERED: METHADONE HCL 10 MG TABLET (FOR DETOX USE ONLY) PO ONE (10:00)
[2020-05-04] MEDS: NICOTINE 21 MG/24 HOURS TOPICAL PATCH TD SCH (11:19)
[2020-05-04] MEDS: PRENATAL VITAMINS W/ FOLIC ACID TABLET (FP) PO SCH (11:19)
[2020-05-04 12:42] VITALS: BP 106/66; PULSE 57; TEMP 97.9
[2020-05-05] MEDS ORDERED: METHADONE (DETOX) 10 MG, METHADONE (DETOX) 5 MG PO ONE (10:00)
[2020-05-06] MEDS ORDERED: METHADONE HCL 10 MG TABLET (FOR DETOX USE ONLY) PO ONE (10:00)
[2020-05-07] MEDS ORDERED: METHADONE HCL 5 MG TABLET (FOR DETOX USE ONLY) PO ONE (06:00)
== END 2020-05-04 15:27 | disposition left against medical advice (07) | DRG 770 ==
LOC: YASAS 01:06 → Y3N 01:39
PROVIDERS: ADMIT Allergy & Immunology; ATTEND Allergy & Immunology
PROC: HZ2ZZZZ Detoxification Services for Substance Abuse Treatment (ICD-10-PCS; principal; 2020-05-02)
DX: F11.23 Opioid dependence with withdrawal (principal); F10.230 Alcohol dependence with withdrawal, uncomplicated; F14.20 Cocaine dependence, uncomplicated; F12.20 Cannabis dependence, uncomplicated; F17.210 Nicotine dependence, cigarettes, uncomplicated; F19.24 Other psychoactive substance dependence with psychoactive substance-induced mood disorder; J45.20 Mild intermittent asthma, uncomplicated; M08.20 Juvenile rheumatoid arthritis with systemic onset, unspecified site; Z91.013 Allergy to seafood; Z59.0 Homelessness
CPT/HCPCS: 36415; 80053; 85027; 86780; 93005; 93010; C9803; J0735; U0003

== ENCOUNTER 2021-03-22 18:18 | Inpatient (IN) | payer OTHER ==
[2021-03-22] MEDS ORDERED: ACETAMINOPHEN 325 MG TABLET (FP) PO PRN ×2 (22:57)
[2021-03-22] MEDS ORDERED: MAGNESIUM HYDROX 2400MG/30ML ORAL SUSPENSION 30 ML CUP PO PRN (22:57)
[2021-03-22] MEDS ORDERED: BISMUTH SUBSALICYLATE 524 MG/30 ML PO PRN (22:57)
[2021-03-22] MEDS ORDERED: IBUPROFEN 400 MG TABLET (FP) PO PRN (22:57)
[2021-03-22] MEDS ORDERED: NICOTINE 10 MG CARTRIDGE (INHALER) IH PRN (22:57)
[2021-03-22] MEDS ORDERED: MENTHOL/PHENOL 1 EACH UD MM PRN (22:57)
[2021-03-22] MEDS ORDERED: NICOTINE POLACRILEX 2 MG GUM BUC PRN (22:57)
[2021-03-22] MEDS ORDERED: MAGNESIUM CITRATE 300 ML BOTTLE PO PRN (22:57)
[2021-03-22] MEDS ORDERED: MAG HYDROX/AL HYDROX/SIMETH 30 ML UNIT-DOSE CUP PO PRN (22:57)
[2021-03-22] MEDS ORDERED: ONDANSETRON *ODT* 4 MG TABLET SL PRN (22:57)
[2021-03-22 23:46] VITALS: BMI 21.6
[2021-03-23] MEDS: METHOCARBAMOL 500 MG TABLET PO PRN (03:30)
[2021-03-23] MEDS: hydrOXYzine PAMOATE 25 MG CAPSULE (FP) PO PRN (03:33)
[2021-03-23] MEDS ORDERED: cloNIDine HCL 0.1 MG TABLET PO PRN (10:53)
[2021-03-23] MEDS ORDERED: methaDONE HCL 10 MG TABLET (FOR DETOX USE ONLY) PO ONE (11:45)
[2021-03-23] MEDS: PRENATAL VITAMINS W/ FOLIC ACID TABLET (FP) PO SCH (12:52)
[2021-03-23 13:34] LABS: CALCIUM 8.5 mg/dL (8.5-10.1); HEMATOCRIT 32.7 % (35.4-49); HEMOGLOBIN 10.9 GM/dL (11.7-16.9); MCH 28.3 pg (25.7-33.7); MCHC 33.4 g/dl (32.0-35.9); MEAN CELL VOLUME 84.5 fl (80-96); MEAN PLT VOLUME 7.8 fl (7.5-11.1); PLATELET COUNT 226 10^3/uL (134-434); RBC 3.87 M/mm3 (4.00-5.60); RDW 14.4 % (11.9-15.9); WHITE BLOOD COUNT 4.5 K/mm3 (4.0-10.0)
[2021-03-23 13:35] LABS: BLOOD UREA NITROGEN 20.8 mg/dL (7-18)
[2021-03-23 13:38] LABS: CREATININE 0.9 mg/dL (0.55-1.3)
[2021-03-23 13:39] LABS: BILIRUBIN,TOTAL 0.2 mg/dL (0.2-1); TOT PROT 6.6 g/dl (6.4-8.2)
[2021-03-23] MEDS: THIAMINE HCL 100 MG TABLET (FP) PO SCH (22:52)
[2021-03-24] MEDS ORDERED: methaDONE HCL 10 MG TABLET (FOR DETOX USE ONLY) ONE (09:22)
[2021-03-24] MEDS: diazePAM 5 MG TABLET PO PRN (11:21)
[2021-03-24] MEDS: PRENATAL VITAMINS W/ FOLIC ACID TABLET (FP) PO SCH (11:22)
[2021-03-24] MEDS: METHOCARBAMOL 500 MG TABLET PO PRN (11:23)
[2021-03-24] MEDS: THIAMINE HCL 100 MG TABLET (FP) PO SCH (22:13)
[2021-03-25] MEDS: hydrOXYzine PAMOATE 25 MG CAPSULE (FP) PO PRN ×2 (03:19→22:25)
[2021-03-25] MEDS: cloNIDine HCL 0.1 MG TABLET PO PRN (03:19)
[2021-03-25] MEDS ORDERED: methaDONE HCL 10 MG TABLET (FOR DETOX USE ONLY) PO ONE (10:00)
[2021-03-25] MEDS: PRENATAL VITAMINS W/ FOLIC ACID TABLET (FP) PO SCH (11:02)
[2021-03-25] MEDS: diazePAM 5 MG TABLET PO PRN ×2 (11:02→22:25)
[2021-03-25] MEDS: METHOCARBAMOL 500 MG TABLET PO PRN (11:02)
[2021-03-25] MEDS: THIAMINE HCL 100 MG TABLET (FP) PO SCH (22:22)
[2021-03-25] MEDS: MELATONIN 5 MG TABLETS PO PRN (22:23)
[2021-03-26] MEDS ORDERED: methaDONE HCL 10 MG TABLET (FOR DETOX USE ONLY) ONE (08:54)
[2021-03-26] MEDS: PRENATAL VITAMINS W/ FOLIC ACID TABLET (FP) PO SCH (10:56)
[2021-03-26] MEDS: METHOCARBAMOL 500 MG TABLET PO PRN (10:56)
[2021-03-26] MEDS: cloNIDine HCL 0.1 MG TABLET PO PRN (10:58)
[2021-03-26 20:38] VITALS: BP 105/67; PULSE 107; TEMP 98.7
[2021-03-26] MEDS: THIAMINE HCL 100 MG TABLET (FP) PO SCH (22:26)
[2021-03-26] MEDS: hydrOXYzine PAMOATE 25 MG CAPSULE (FP) PO PRN (22:26)
[2021-03-26] MEDS: MELATONIN 5 MG TABLETS PO PRN (22:26)
[2021-03-27] MEDS ORDERED: methaDONE HCL 10 MG TABLET (FOR DETOX USE ONLY) PO ONE (10:00)
[2021-03-29 12:14] LABS: SARS-CoV-2 NAA Not Detected
== END 2021-03-27 08:37 | disposition home or self-care (01) | DRG 773 ==
LOC: YASAS 18:18 → Y6N 03-23 02:26
PROVIDERS: ADMIT Allergy & Immunology; ATTEND Allergy & Immunology
PROC: HZ2ZZZZ Detoxification Services for Substance Abuse Treatment (ICD-10-PCS; principal; 2021-03-23)
DX: F11.23 Opioid dependence with withdrawal (principal); F10.20 Alcohol dependence, uncomplicated; F14.20 Cocaine dependence, uncomplicated; F17.210 Nicotine dependence, cigarettes, uncomplicated; F41.9 Anxiety disorder, unspecified; D64.9 Anemia, unspecified; J45.20 Mild intermittent asthma, uncomplicated; M19.90 Unspecified osteoarthritis, unspecified site; R63.4 Abnormal weight loss; Z68.21 Body mass index [BMI] 21.0-21.9, adult; Z91.013 Allergy to seafood
CPT/HCPCS: 36415; 80053; 85027; 86780; C9803; J0735; U0003; U0005

== ENCOUNTER 2021-06-10 08:09 | Inpatient (IN) | payer OTHER ==
[2021-06-10 08:56] VITALS: BMI 22.2
[2021-06-10] MEDS ORDERED: NICOTINE 10 MG CARTRIDGE (INHALER) IH PRN (09:25)
[2021-06-10] MEDS ORDERED: DICYCLOMINE HCL 10 MG CAPSULE PO PRN (09:25)
[2021-06-10] MEDS ORDERED: hydrOXYzine PAMOATE 25 MG CAPSULE (FP) PO PRN (09:25)
[2021-06-10] MEDS ORDERED: ONDANSETRON *ODT* 4 MG TABLET SL PRN (09:25)
[2021-06-10] MEDS ORDERED: MAG HYDROX/AL HYDROX/SIMETH 30 ML UNIT-DOSE CUP PO PRN (09:25)
[2021-06-10] MEDS ORDERED: LOPERAMIDE HCL 2 MG CAPSULE PO PRN (09:25)
[2021-06-10] MEDS ORDERED: IBUPROFEN 400 MG TABLET (FP) PO PRN (09:25)
[2021-06-10] MEDS ORDERED: ACETAMINOPHEN 325 MG TABLET (FP) PO PRN ×2 (09:25)
[2021-06-10] MEDS ORDERED: BENZOCAINE/MENTHOL (CHLORASEPTIC ) LOZENGE MM PRN (09:25)
[2021-06-10] MEDS ORDERED: MAGNESIUM CITRATE 300 ML BOTTLE PO PRN (09:25)
[2021-06-10] MEDS ORDERED: P-EPHED 60MG/TRIPROLIDI 2.5MG TABLET PO PRN (09:25)
[2021-06-10] MEDS ORDERED: NICOTINE POLACRILEX 2 MG GUM BUC PRN (09:25)
[2021-06-10] MEDS ORDERED: MAGNESIUM HYDROX 2400MG/30ML ORAL SUSPENSION 30 ML CUP PO PRN (09:25)
[2021-06-10] MEDS ORDERED: BISMUTH SUBSALICYLATE 524 MG/30 ML PO PRN (09:25)
[2021-06-10] MEDS: PRENATAL VITAMINS W/ FOLIC ACID TABLET (FP) PO SCH (11:39)
[2021-06-10] MEDS: THIAMINE HCL 100 MG TABLET (FP) PO SCH (22:51)
[2021-06-11] MEDS ORDERED: cloNIDine HCL 0.1 MG TABLET PO PRN (10:42)
[2021-06-11] MEDS ORDERED: methaDONE HCL 10 MG TABLET (FOR DETOX USE ONLY) PO ONE (10:42)
[2021-06-11] MEDS: PRENATAL VITAMINS W/ FOLIC ACID TABLET (FP) PO SCH (11:13)
[2021-06-11] MEDS: METHOCARBAMOL 500 MG TABLET PO PRN (11:13)
[2021-06-11] MEDS ORDERED: clonazePAM 0.5 MG ODT TABLETS SL PRN (20:53)
[2021-06-11] MEDS: THIAMINE HCL 100 MG TABLET (FP) PO SCH (22:43)
[2021-06-12] MEDS ORDERED: methaDONE HCL 10 MG TABLET (FOR DETOX USE ONLY) ONE (09:33)
[2021-06-12] MEDS: PRENATAL VITAMINS W/ FOLIC ACID TABLET (FP) PO SCH (09:56)
[2021-06-12] MEDS: METHOCARBAMOL 500 MG TABLET PO PRN (09:56)
[2021-06-12 12:31] LABS: HEMATOCRIT 40.7 % (35.4-49); HEMOGLOBIN 13.6 GM/dL (11.7-16.9); MCH 28.3 pg (25.7-33.7); MCHC 33.4 g/dl (32.0-35.9); MEAN CELL VOLUME 84.7 fl (80-96); MEAN PLT VOLUME 8.6 fl (7.5-11.1); PLATELET COUNT 211 10^3/uL (134-434); RDW 14.4 % (11.9-15.9); WHITE BLOOD COUNT 9.3 K/mm3 (4.0-10.0)
[2021-06-12 13:03] LABS: BLOOD UREA NITROGEN 13.4 mg/dL (7-18); CALCIUM 9.2 mg/dL (8.5-10.1)
[2021-06-12 13:04] LABS: ALBUMIN 3.5 g/dl (3.4-5.0)
[2021-06-12 13:06] LABS: CREATININE 0.8 mg/dL (0.55-1.3)
[2021-06-12 13:08] LABS: TOT PROT 7.4 g/dl (6.4-8.2)
[2021-06-12 13:09] LABS: BILIRUBIN,TOTAL 0.4 mg/dL (0.2-1)
[2021-06-12] MEDS: diazePAM 5 MG TABLET PO PRN ×2 (16:45→22:30)
[2021-06-12] MEDS: MELATONIN 5 MG TABLETS PO PRN (22:28)
[2021-06-12] MEDS: THIAMINE HCL 100 MG TABLET (FP) PO SCH (22:30)
[2021-06-13] MEDS ORDERED: methaDONE HCL 10 MG TABLET (FOR DETOX USE ONLY) PO ONE (10:00)
[2021-06-13] MEDS: METHOCARBAMOL 500 MG TABLET PO PRN (10:18)
[2021-06-13] MEDS: PRENATAL VITAMINS W/ FOLIC ACID TABLET (FP) PO SCH (10:18)
[2021-06-13] MEDS: diazePAM 5 MG TABLET PO PRN ×3 (10:18→22:19)
[2021-06-13 16:08] LABS: SARS-CoV-2 NAA Not Detected (Not Detected)
[2021-06-13] MEDS: THIAMINE HCL 100 MG TABLET (FP) PO SCH (22:19)
[2021-06-13] MEDS: MELATONIN 5 MG TABLETS PO PRN (22:19)
[2021-06-14] MEDS ORDERED: methaDONE HCL 10 MG TABLET (FOR DETOX USE ONLY) ONE (09:22)
[2021-06-14] MEDS: PRENATAL VITAMINS W/ FOLIC ACID TABLET (FP) PO SCH (10:47)
[2021-06-14] MEDS: diazePAM 5 MG TABLET PO PRN ×2 (14:06→22:26)
[2021-06-14] MEDS: MELATONIN 5 MG TABLETS PO PRN (22:27)
[2021-06-14] MEDS: METHOCARBAMOL 500 MG TABLET PO PRN (22:31)
[2021-06-14] MEDS: THIAMINE HCL 100 MG TABLET (FP) PO SCH (22:53)
[2021-06-15] MEDS ORDERED: methaDONE HCL 10 MG TABLET (FOR DETOX USE ONLY) PO ONE (10:00)
[2021-06-15] MEDS: PRENATAL VITAMINS W/ FOLIC ACID TABLET (FP) PO SCH (10:58)
[2021-06-15] MEDS: METHOCARBAMOL 500 MG TABLET PO PRN ×2 (10:59→22:31)
[2021-06-15] MEDS: MELATONIN 5 MG TABLETS PO PRN (22:31)
[2021-06-15] MEDS: THIAMINE HCL 100 MG TABLET (FP) PO SCH (22:31)
[2021-06-16] MEDS ORDERED: ALBUTEROL SO4 HFA INHALER IH PRN (06:17)
[2021-06-16 09:30] VITALS: BP 123/61; PULSE 81; TEMP 97.5
[2021-06-16] MEDS: PRENATAL VITAMINS W/ FOLIC ACID TABLET (FP) PO SCH (10:21)
== END 2021-06-16 11:49 | disposition other institution (70) | DRG 773 ==
LOC: YASAS 08:09 → UNDOADMIN 09:29 → Y3N 09:29
PROVIDERS: ADMIT Allergy & Immunology; ATTEND Allergy & Immunology
PROC: HZ2ZZZZ Detoxification Services for Substance Abuse Treatment (ICD-10-PCS; principal; 2021-06-10)
DX: F11.23 Opioid dependence with withdrawal (principal); F14.20 Cocaine dependence, uncomplicated; F12.20 Cannabis dependence, uncomplicated; F17.210 Nicotine dependence, cigarettes, uncomplicated; J45.20 Mild intermittent asthma, uncomplicated; Z91.013 Allergy to seafood
CPT/HCPCS: 36415; 80053; 85027; 86780; 87811; C9803-CS; J0735; U0003; U0005